=== PATIENT | female | born 1945 | race Hispanic/Latino ===

== ENCOUNTER → 2020-11-26 | Outpatient (CLI) | payer MEDICARE | END | disposition home or self-care (01) | LOC: OIH 11:06 | PROVIDERS: ATTEND Internal Medicine | DX: I10 Essential (primary) hypertension (principal); Z98.82 Breast implant status | CPT/HCPCS: 71046 ==

== ENCOUNTER → 2025-02-08 | Outpatient (CLI) | payer MEDICARE ==
[~2025-02-08] MED LIST: ATOR10TA69 PO
--- NOTE | 2025-02-08 16:45 | HMCIMG ---
FEMUR 2VW RIGHT REASON: EFFUSION OF FEMUR TECHNIQUE: 4 views were obtained. FINDINGS: There is osteopenia of the osseous structure. There is a chronic right femoral neck fracture with mild cephalad displacement of the distal femur. There is a right knee arthroplasty which appears to be anatomical position. There is vascular calcification suggesting of atherosclerotic changes. Soft tissue outline appears to be normal. IMPRESSION: Old right femoral neck fracture with cephalad displacement of the distal femur 2. Right knee arthroplasty which appears to be anatomical position 3. Atherosclerotic changes of the right common femoral artery superficial femoral artery and profunda femoris artery and right popliteal artery. 4. Osteopenia
--- NOTE | 2025-02-08 16:47 | HMCIMG ---
PELVIS 1-2VWS REASON: INJURY OF PELVIS TECHNIQUE: 1 view was obtained. FINDINGS: There is osteopenia of the osseous structure.. There is a right femoral neck fracture of the distal fracture fragment displaced cephalad.. Joint spaces are unremarkable. Soft tissues appear normal as well. Remaining pelvic structures appears to have developed mammography. IMPRESSION: 1. Left femoral neck fracture with distal Fracture fragment displaced cephalad. 2. Osteopenia 3. 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
--- NOTE | 2025-02-08 16:48 | HMCIMG ---
RIGHT HIP RADIOGRAPHS - 2 VIEWS INDICATION: Pain COMPARISON: None FINDINGS: AP and abduction views. There is a right femoral neck fracture with the distal fracture fragment displaced cephalad. Femoral head is well formed without osteochondral erosion or radiographic evidence for avascular necrosis. No radiopaque foreign body noted. There is vascular calcification suggesting of atherosclerotic changes of the femoral vessel There is osteopenia of the osseous structure. IMPRESSION: Right femoral subcapital fracture which appears to be chronic and displaced cephalad..
== END | disposition home or self-care (01) ==
LOC: RAH 15:20
PROVIDERS: ATTEND Internal Medicine
DX: S72.002A Fracture of unspecified part of neck of left femur, initial encounter for closed fracture (principal); S72.011A Unspecified intracapsular fracture of right femur, initial encounter for closed fracture; S39.93XA Unspecified injury of pelvis, initial encounter; M85.88 Other specified disorders of bone density and structure, other site; I70.203 Unspecified atherosclerosis of native arteries of extremities, bilateral legs; M25.551 Pain in right hip; M25.451 Effusion, right hip; Z96.651 Presence of right artificial knee joint; X58.XXXA Exposure to other specified factors, initial encounter; Y93.89 Activity, other specified; Y92.89 Other specified places as the place of occurrence of the external cause; Y99.8 Other external cause status
CPT/HCPCS: 72170; 73502; 73552